=== PATIENT | female | born 2000 | race Caucasian/White ===

== ENCOUNTER 2019-09-14 20:51 | Emergency (ER) | payer OTHER ==
--- NOTE | 2019-09-14 22:08 | RAD ---
EXAM: Chest PA and lateral: HISTORY: Cough COMPARISON: None FINDINGS: Heart: Normal cardiac silhouette Aorta: Unremarkable Pulmonary vessels: Normal Costophrenic angles: Costophrenic angles are clear. Lungs: Focal consolidation likely in the upper aspect of the left lower lobe. Pneumothorax: No pneumothorax Osseous structures: No osseous abnormalities IMPRESSION: Left lower lobe consolidation. Continued surveillance is recommended.
== END 2019-09-14 22:46 | disposition home or self-care (01) ==
LOC: ERS 20:51
DX: J18.9 Pneumonia, unspecified organism (principal); J45.909 Unspecified asthma, uncomplicated; K21.9 Gastro-esophageal reflux disease without esophagitis; Z79.899 Other long term (current) drug therapy
CPT/HCPCS: 71046; J7620

== ENCOUNTER 2019-09-18 16:08 | Emergency (ER) | payer OTHER | END 2019-09-18 17:37 | disposition home or self-care (01) | LOC: ERS 16:08 | DX: J18.9 Pneumonia, unspecified organism (principal); J45.909 Unspecified asthma, uncomplicated; K21.9 Gastro-esophageal reflux disease without esophagitis; Z79.899 Other long term (current) drug therapy; Z79.51 Long term (current) use of inhaled steroids | CPT/HCPCS: 99283 ==

== ENCOUNTER 2019-12-25 18:00 | Emergency (ER) | payer OTHER ==
[2019-12-25] MEDS ORDERED: Ketorolac Tromethamine 30 MG/ML VIAL ONE (19:17)
--- NOTE | 2019-12-25 19:56 | RAD ---
EXAM: THREE VIEWS OF THE RIGHT HAND: 12/25/19 HISTORY: Right hand hit bed post last night. Pain and swelling. COMPARISON: None. FINDINGS: Preserved joint spaces. No fracture, cortical irregularity or periosteal reaction. There is dorsal soft tissue swelling. IMPRESSION: Dorsal soft tissue swelling, without fracture. POS: PPP
== END 2019-12-25 19:36 | disposition home or self-care (01) ==
LOC: ERS 18:00
DX: S63.91XA Sprain of unspecified part of right wrist and hand, initial encounter (principal); J45.909 Unspecified asthma, uncomplicated; K21.9 Gastro-esophageal reflux disease without esophagitis; Z79.51 Long term (current) use of inhaled steroids; Z79.899 Other long term (current) drug therapy; W22.8XXA Striking against or struck by other objects, initial encounter
CPT/HCPCS: 96372; J1885